=== PATIENT | male | born 1970 | race Asian ===

== ENCOUNTER 2020-10-17 20:59 | Emergency (ER) | payer BC, OTHER ==
[~2020-10-17] VITALS: Ht 162.6 cm; Wt 59.0 kg
[2020-10-17 21:07] VITALS: BP 139/83
[2020-10-17] MEDS ORDERED: predniSONE 20 MG TAB PO ONE (21:15)
[2020-10-17] MEDS ORDERED: FAMOTIDINE 20 MG (PEPCID) TABLET PO ONE (21:15)
--- NOTE | 2020-10-17 21:56 | ED General ---
General Chief Complaint: Allergic Reaction Stated Complaint: ALERGIC REACTION Nursing Triage Note: PT AMBULATE TO ROOM FS01 WITH C/O ALLERGIC REACTION. PT STATES THAT HE IS ALLERGIC TO CHERRIES AND THAT HIS BROUGHT HOME A BIG BAG OF CHERRIES AND HE THOUGHT IS WOULD BE SAFE TO EAT JUST 5-6 OF THEM. 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 Patient symptoms began 20 minutes within. Reports rash and itching on back swelling of face and fullness in the back of his throat. Denies difficulty swallowing, airway tightness, shortness of breath and wheezing. Patient did not take any medications prior to ED arrival. States he has previously eaten cherries and being treated by steroids but has never required hospital admission. History of diabetes. No other acute symptoms or complaints. Timing/Duration: 1-3 Hours Severity: Moderate Modifying Factors: improves with Other Associated Systoms: Other Allergies and Home Medications Allergies Coded Allergies: No Known Allergies (Verified Allergy, Unknown, 10/17/20) Patient Home Medication List Home Medication List Reviewed: Yes Review of Systems Review of Systems Constitutional: see HPI EENTM: see HPI Respiratory: see HPI Cardiovascular: see HPI Gastrointestinal: see HPI Genitourinary: see HPI Musculoskeletal: see HPI Skin: see HPI Psychiatric/Neurological: See HPI Hematologic/Lymphatic: See HPI All Other Systems Reviewed Negative Unless Noted: Yes Past Vmfjvbn-Luipao-Sdrgbi Hx Past Med/Social Hx: Reviewed Nursing Past Med/Soc Hx Patient Social History Alcohol Use: Regular Use Alcohol Beverage of Choice: Beer Smoking Status: Never a Smoker 2nd Hand Smoke Exposure: No Recent Infectious Disease Expo: No Recent Hopitalizations: Yes Seasonal Allergies Seasonal Allergies: No Past Medical History Surgeries: No Respiratory: No Cardiac: No Neurological: No Gastrointestinal: No Musculoskeletal: No Endocrine: Yes Diabetes, Non-Insulin dep HEENT: No Cancer: No Psychosocial: No Integumentary: No Physical Exam Vital Signs Vital Signs - First Documented 10/17/20 21:07 Temp 35.9 Pulse 85 Resp 18 B/P (MAP) 139/83 (101) O2 Delivery Room Air Capillary Refill : Less Than 3 Seconds Height, Weight, BMI Height: '" Weight: lbs. oz. kg; 22.00 BMI Method: General Appearance: No Apparent Distress Eyes: Bilateral Eye PERRL HEENT: PERRL/EOMI, Pharynx Normal, Pharyngeal Erythema Neck: Full Range of Motion, Normal Inspection, Non Tender, Supple Respiratory: Chest Non Tender, Lungs Clear, No Respiratory Distress Cardiovascular: Regular Rate, Rhythm, No Edema, No JVD, No Murmur Gastrointestinal: Non Tender, Soft Back: Normal Inspection, No CVA Tenderness Skin: Rash (Diffuse urticaria), Other Focused Exam Sepsis Stage: Ruled Out Progress/Results/Core Measures Suspected Sepsis Recent Fever Within 48 Hours: No Infection Criteria Present: None New/Unexplained Altered Menta: No Sepsis Screen: No Definite Risk SIRS Temperature: Pulse: 85 Respiratory Rate: 18 Blood Pressure 139 /83 Mean: 101 Results/Orders My Orders Orders - ROGERS ESPINOSA DO Prednisone Tablet (Deltasone Tablet) (10/17/20 21:15) Famotidine Tablet (Pepcid Tablet) (10/17/20 21:15) Medications Given in ED Current Medications Medications Dose Ordered Sig/Donald Route Start Time Stop Time Status Last Admin Dose Admin Famotidine 40 mg ONCE ONCE PO 10/17/20 21:15 10/17/20 21:16 DC 10/17/20 21:20 40 MG Prednisone 50 mg ONCE ONCE PO 10/17/20 21:15 10/17/20 21:16 DC 10/17/20 21:20 50 MG Vital Signs/I&O 10/17/20 21:07 Temp 35.9 Pulse 85 Resp 18 B/P (MAP) 139/83 (101) O2 Delivery Room Air Capillary Refill : Less Than 3 Seconds Blood Pressure Mean: 101 Departure Communication (Admissions) Patient given prednisone and Pepcid and monitored. No airway swelling and rash improved prior to discharge. Patient instructed never to eat cherries. We will continue supportive care due to likelihood of worsening reaction with recurrence. Return precautions reviewed. Return precautions reviewed. Patient verbalizes understanding treatment prior to discharge. Impression Primary Impression: Allergic reaction Disposition: HOME, SELF-CARE Condition: Stable Departure-Patient Inst. Decision time for Depature: 21:57 Referrals: KATARINA CARDOSO DO (PCP/Family) Primary Care Physician Patient Instructions: Allergic Reaction ED Add. Discharge Instructions: Please do not eat cherries as each allergic reaction will likely be worse than the one before it. Continue prednisone and Pepcid. Take 50 mg Benadryl 4 times daily as needed for additional relief. Return to the ED if new or worsening symptoms. All discharge instructions reviewed with patient and/or family. Voiced understanding. Scripts Famotidine (Pepcid) 20 Mg Tablet 20 MG PO 6, #6 TAB Prov: ROGERS ESPINOSA DO 10/17/20 Prednisone (Prednisone) 20 Mg Tab 40 MG PO DAILY, #3 TAB 0 Refills Prov: ROGERS ESPINOSA DO 10/17/20 ROGERS ESPINOSA DO Oct 17, 2020 21:56
[2020-10-17] MEDS ORDERED: PRD20T PO (21:58)
[2020-10-17] MEDS ORDERED: FAMO-119 PO (21:58)
== END 2020-10-17 22:04 | disposition home or self-care (01) ==
LOC: ER FS 21:01
DX: T78.1XXA Other adverse food reactions, not elsewhere classified, initial encounter (principal); E11.9 Type 2 diabetes mellitus without complications
CPT/HCPCS: 99283